=== PATIENT | female | born 1990 | race Caucasian/White ===

== ENCOUNTER 2021-12-07 01:31 | Emergency (ER) | payer OTHER, SELFPAY ==
--- NOTE | ~2021-12-07 | XR_ITS ---
XR hand RT min 3V DATE: 12/07/2021 02:25 INDICATION: Right colon by 8 at medial aspect of fifth digit anteriorly TECHNIQUE: 3 views COMPARISON: None FINDINGS: No fracture or dislocation, periosteal reaction or bone destruction or radiopaque foreign b jorge. IMPRESSION: Negative Reviewed, dictated and finalized at location A. ICAL STAFF EDUCATOR IMPRESSION: Negative
[2021-12-07 01:37] VITALS: BP 146/87; PULSE 75; RESP 14; TEMP 36.3; O2SAT 100
--- NOTE | 2021-12-07 02:07 | ED.GENADULT ---
HPI - General Adult General Chief complaint: Animal Bite Stated complaint: racoon bite hand Time Seen by Provider: 12/07/21 01:41 Source: RN notes reviewed History of Present Illness HPI narrative: Patient presents emergency department from home for raccoon bite. Patient states she was driving home from work when she is on injury direction in the road that time she had stopped to go put the raccoon down when the raccoon bit her in the right hand patient has a small abrasion over the right knuckle she denies any other areas of bite she states she washed it out with soap and water as well as hydrogen peroxide she states she has not had the rabies vaccine before in the past patient states her last tetanus shot was in 2019 denies any numbness or tingling in the extremities or any other symptoms Related Data Home Medications Medication Instructions Recorded Confirmed dextroamphetamine-amphetamine 12/07/21 [Adderall] sertraline [Zoloft] mg 12/07/21 Allergies Allergy/AdvReac Type Severity Reaction Status Date / Time bacitracin Allergy Hives Verified 12/07/21 01:42 [From Neosporin ([id number])] coconut Allergy Vomiting Verified 12/07/21 01:42 neomycin Allergy Hives Verified 12/07/21 01:42 [From Neosporin ([id number])] polymyxin B Allergy Hives Verified 12/07/21 01:42 [From Neosporin ([id number])] Sulfa (Sulfonamide Allergy Vomiting Verified 12/07/21 01:42 Antibiotics) tramadol Allergy Vomiting Verified 12/07/21 01:42 Review of Systems Review of Systems: Gen.: Denies fevers or chills ENT: Denies congestion Respiratory: Denies shortness of breath : Denies Musculoskeletal: Denies back pain or muscle pain Neuro: Denies numbness, tingling, weakness or focal weakness Skin: See HPI Except as documented, all other systems reviewed and negative PMFSH Past Medical History Medical History (Updated 12/07/21 @ 02:39 by Christian Wei DO) Patient denies significant medical history Social History Social History (Updated 12/07/21 @ 02:35 by Christian Wei DO) Smoking status: Never smoker Exam Narrative: APPEARANCE: No acute distress, nontoxic, resting in bed Eyes: EOMI HEENT: Normocephalic, atraumatic, RESPIRATORY: No respiratory distress MUSCULOSKELETAl: The right dorsal hand has a small superficial abrasion over the fifth MCP joint, it is superficial there is no deep wound seen no tendon involvement patient has full flexion extension of all 5 MCP and IP joints, radial pulse 2+ neurovascular intact NEURO: Awake and alert. Following commands, speech normal, no focal deficits SKIN:: Warm, dry. Normal Color no rash or lesions Course Course Emergency Course: Patient is never had rabies vaccine will be given vaccine and immunoglobulin. I did inject immunoglobulin around the wound and then the rest will be given intramuscular Patient will be given Augmentin for wound infection prevention states she normally takes Zofran with this Discussed with patient results of workup and diagnosis. Discussed need for follow-up with primary care, proper use of medication, and reasons to return to the emergency department. Patient understands and agrees to current treatment plan Vital Signs Vital signs: Vital Signs Temperature 97.3 F L 12/07/21 01:37 Pulse Rate 75 12/07/21 01:37 Respiratory Rate 14 12/07/21 01:37 Blood Pressure 146/87 H 12/07/21 01:37 Pulse Oximetry 100 12/07/21 01:37 Temperature 97.3 F L 12/07/21 01:37 Pulse Rate 75 12/07/21 01:37 Respiratory Rate 14 12/07/21 01:37 Blood Pressure 146/87 H 12/07/21 01:37 Pulse Oximetry 100 12/07/21 01:37 Medical Decision Making Vital Signs Vital Signs: Vital Signs Temperature 97.3 F L 12/07/21 01:37 Pulse Rate 75 12/07/21 01:37 Respiratory Rate 14 12/07/21 01:37 Blood Pressure 146/87 H 12/07/21 01:37 Pulse Oximetry 100 12/07/21 01:37 Temperature 97.3
[2021-12-07] MEDS: RABIES VACCINE (RABAVERT) 2.5 UNITS VIAL IM (02:33)
[2021-12-07] MEDS: RABIES IMMUNE GLOBULIN/PF 1,500 UNITS/5 ML VIAL 1460 UNITS IM (02:35)
[2021-12-07] MEDS: ONDANSETRON HCL ODT 4 MG TABLET PO (02:45)
[2021-12-07] MEDS: AMOXICILLIN/CLAVULANATE K 875-125 MG TAB 1 TABLET PO (02:45)
== END 2021-12-07 02:50 | disposition home or self-care (01) ==
PROVIDERS: Emergency Provider Emergency Medicine
DX: S61.451A Open bite of right hand, initial encounter (principal); Z23 Encounter for immunization; W55.51XA Bitten by raccoon, initial encounter
CPT/HCPCS: 73130; 90471; 90675; 96372; 99283; 90375; A9270

== ENCOUNTER 2021-12-10 14:04 | Outpatient (CLI) | payer OTHER, SELFPAY ==
--- NOTE | 2021-12-10 14:30 | PC.NURSE ---
Ambulatory to OP draw station for second rabies vaccine initiated in the ED here on 12/07/21 after raccoon bite. Site at base of thumb is without redness, tenderness, drainage or warmth. States is taking antibiotic as prescribed. Denies reaction to globulin or vaccine from 12/07/21 - denies nausea, body aches, site tenderness. has been feeling a bit tired but is currently switching shifts at work. She is an RN at [employer]. Instructed regarding next vaccine that is due on 12/14/21 and that she will need to return to ED for additional doses - voices understanding. Reinforced not to touch wild animals for her safety in the future.
== END 2021-12-10 14:05 | disposition home or self-care (01) ==
LOC: ANHVASCINF 14:06
DX: Z20.3 Contact with and (suspected) exposure to rabies (principal)
CPT/HCPCS: 90471; 90675

== ENCOUNTER 2021-12-14 09:45 | Outpatient (CLI) | payer OTHER, SELFPAY ==
--- NOTE | 2022-01-10 07:10 | PC.NURSE ---
late entry 12/14/21 0200-Pt to ER for 3rd dose of Rabies vaccine. Medication obtained from pharmacy. administered to R deltoid.pt will return next week for next dose.
== END 2021-12-14 09:46 | disposition home or self-care (01) ==
LOC: ANHED 01-28 09:46
PROVIDERS: Visit Provider Emergency Medicine
DX: Z23 Encounter for immunization (principal)
CPT/HCPCS: 90675

== ENCOUNTER 2021-12-21 00:45 | Emergency (ER) | payer OTHER, SELFPAY ==
[2021-12-21] MEDS: RABIES VACCINE (RABAVERT) 2.5 UNITS VIAL IM (01:30)
[2021-12-21 01:42] VITALS: BP 116/75; PULSE 74; RESP 16; TEMP 36.7; O2SAT 100
[2021-12-21 01:45] VITALS: BP 116/78; PULSE 76; RESP 16; O2SAT 100
== END 2021-12-21 01:46 | disposition other institution (70) ==
LOC: ANHED 01:08
PROVIDERS: Emergency Provider Emergency Medicine
DX: Z29.14 Encounter for prophylactic rabies immune globulin (principal)
CPT/HCPCS: 90471; 90675; 99199